=== PATIENT | male | born 1970 | race Two or more races ===

== ENCOUNTER 2018-04-27 19:32 | Emergency (ER) | payer OTHER ==
[~2018-04-27] VITALS: Ht 182.9 cm; Wt 78.0 kg
[2018-04-28] MEDS ORDERED: MECLIZINE HCL25 MG PO (00:17)
== END 2018-04-28 00:39 | disposition home or self-care (01) ==
LOC: ER 19:32
DX: H81.13 Benign paroxysmal vertigo, bilateral (principal)

== ENCOUNTER 2018-09-21 10:33 | Outpatient (CLI) | payer OTHER ==
[~2018-09-21 10:33] MED LIST: MECLIZINE HCL25 MG PO; PAIN RELIEVER500 M4
== END 2018-09-21 10:40 | disposition home or self-care (01) ==
LOC: RAD 10:33
DX: M54.5 Low back pain (principal); I10 Essential (primary) hypertension; Z01.810 Encounter for preprocedural cardiovascular examination

== ENCOUNTER 2024-03-29 16:09 | Outpatient (CLI) | payer OTHER | END 2024-03-29 16:25 | disposition home or self-care (01) | LOC: RAD 16:09 | DX: M25.561 Pain in right knee (principal); M25.562 Pain in left knee ==